=== PATIENT | female | born 1970 | race Caucasian/White ===

== ENCOUNTER 2019-01-26 19:34 | Emergency (ER) | payer OTHER ==
--- NOTE | 2019-01-26 20:23 | UC ---
Upper Extremity HPI - HPI Summary HPI Summary: 48 y/o female presents to the urgent care c/o Mowing a couple of days ago, fell backward and caught self on right elbow and right hand. Today right hand is swollen and painful, pain shoots up thru wrist and into elbow. Last summer had a boxers fracture to same hand. - History of Current Complaint Chief Complaint: UCUpperExtremity Stated Complaint: RIGHT HAND INJURY Time Seen by Provider: 01/26/19 20:20 Hx Obtained From: Patient Hx Last Menstrual Period: had an ablasion Pain Intensity: 6 - Allergies/Home Medications Allergies/Adverse Reactions: Allergies Allergy/AdvReac Type Severity Reaction Status Date / Time Penicillins Allergy Hives Verified 01/26/19 20:02 Home Medications: Home Medications Cholecalciferol TAB* [Vitamin D TAB*] 1,000 unit PO DAILY 01/26/19 [History Confirmed 01/26/19] Famotidine TAB* [Pepcid 20 MG TAB*] 20 mg PO DAILY 01/26/19 [History Confirmed 01/26/19] Hydrochlorothiazide TAB* [Hydrodiuril TAB*] 25 mg PO DAILY 01/26/19 [History Confirmed 01/26/19] LORazepam [Lorazepam] 0.5 mg PO DAILY 01/26/19 [History Confirmed 01/26/19] amLODIPine TAB* [Norvasc 5 mg TAB*] 5 mg PO DAILY 01/26/19 [History Confirmed ] PMH/Surg Hx/FS Hx/Imm Hx - Surgical History Surgical History: Yes Surgery Procedure, Year, and Place: Sleep apnea surgery - Social History Alcohol Use: Rare Substance Use Type: Marijuana Substance Use Comment - Amount & Last Used: last evening Smoking Status (MU): Heavy Every Day Tobacco Smoker Type: Cigarettes Amount Used/How Often: 1 ppd Length of Time of Smoking/Using Tobacco: 20 years Have You Smoked in the Last Year: Yes Physical Exam Vital Signs: Initial Vital Signs Temp 98.3 F 01/26/19 19:54 Pulse 63 01/26/19 19:54 Resp 18 01/26/19 19:54 BP 156/105 01/26/19 19:54 Pulse Ox 99 01/26/19 19:54 Upper Extremity Course/Dx - Differential Dx/Diagnosis Differential Diagnosis/HQI/PQRI: Contusion, Fracture (Closed), Strain, Sprain Provider Diagnosis: Sprain of right elbow, Sprain of right hand, Uncontrolled hypertension Discharge - Sign-Out/Discharge Documenting (check all that apply): Patient Departure - D/C home All imaging exams completed and their final reports reviewed: No - Discharge Plan Condition: Stable Disposition: HOME Patient Education Materials: Elbow Sprain (ED), Hand Sprain (ED) Referrals: Marietta Rachel [Primary Care Provider] - 1 Week Rigoberto Du MD [Medical Doctor] - 1 Week Additional Instructions: 1-Please continue taken Ibuprofen PO q6-8hrs prn as directed to alleviate pain and swelling. 2-Please apply ice, keep your hand immobilized with the splint. and shoulder sling Avoid heavy lifting or strenuous exercise 3- Please f/u with Orthopedic Dr Du or your PCP in 1 week is not improvement of symptoms for further evaluation and treatment. 4- Your BP is elevated today. please decrease salt in your diet, monitor BP and if it continues to be elevated please f/u with your PCP for further management. - Billing Disposition and Condition Condition: STABLE Disposition: Home
[2019-01-26] MEDS ORDERED: Ibuprofen TAB* 400 MG PO ONE (20:33)
[2019-01-26 21:11] VITALS: BP 152/100
--- NOTE | 2019-01-27 16:20 | UC ---
- Progress Note Progress Note: Radiologist reading of right hand wrist and elbow x-rays from January 26, 2019 already is no fracture. The provider interpretation from the same date is not present in the chart at this time. However the patient is diagnosed and discharged with sprain of right elbow and right hand therefore there is no discrepancy. Course/Dx - Diagnoses Provider Diagnoses: Sprain of right elbow, Sprain of right hand, Uncontrolled hypertension Discharge - Sign-Out/Discharge Documenting (check all that apply): Patient Departure All imaging exams completed and their final reports reviewed: Yes - Discharge Plan Condition: Stable Disposition: HOME Patient Education Materials: Elbow Sprain (ED), Hand Sprain (ED) Referrals: Rigoberto Du MD [Medical Doctor] - 1 Week Marietta Rachel [Primary Care Provider] - 1 Week Additional Instructions: 1-Please continue taken Ibuprofen PO q6-8hrs prn as directed to alleviate pain and swelling. 2-Please apply ice, keep your hand immobilized with the splint. and shoulder sling Avoid heavy lifting or strenuous exercise 3- Please f/u with Orthopedic Dr Du or your PCP in 1 week is not improvement of symptoms for further evaluation and treatment. 4- Your BP is elevated today. please decrease salt in your diet, monitor BP and if it continues to be elevated please f/u with your PCP for further management. - Billing Disposition and Condition Condition: STABLE Disposition: Home
== END 2019-01-26 21:33 | disposition home or self-care (01) ==
LOC: UCCORT 19:34
DX: S53.401A Unspecified sprain of right elbow, initial encounter (principal); S63.91XA Sprain of unspecified part of right wrist and hand, initial encounter; I10 Essential (primary) hypertension; F17.210 Nicotine dependence, cigarettes, uncomplicated; Z79.899 Other long term (current) drug therapy; W19.XXXA Unspecified fall, initial encounter
CPT/HCPCS: 99213; A9270-GY; G0463